=== PATIENT | male | born 1930 | race Caucasian/White ===

== ENCOUNTER 2017-03-02 09:58 | Emergency (ER) | payer MEDICARE ==
[~2017-03-02 09:58] MED LIST: Sodium Chloride Irrig Solution 250 ML BOT ONE
[2017-03-02] MEDS ORDERED: Bacitracin Zinc 1 Packet ONE (10:41)
== END 2017-03-02 10:48 | disposition home or self-care (01) ==
LOC: MADERS 09:58
DX: S61.012A Laceration without foreign body of left thumb without damage to nail, initial encounter (principal); I10 Essential (primary) hypertension; W27.0XXA Contact with workbench tool, initial encounter
CPT/HCPCS: 99282

== ENCOUNTER 2017-03-03 08:51 | Emergency (ER) | payer MEDICARE | END 2017-03-03 09:40 | disposition home or self-care (01) | LOC: MADERS 08:51 | DX: S61.002A Unspecified open wound of left thumb without damage to nail, initial encounter (principal); I10 Essential (primary) hypertension; W26.8XXA Contact with other sharp object(s), not elsewhere classified, initial encounter | CPT/HCPCS: 99282 ==

== ENCOUNTER 2017-03-04 08:20 | Emergency (ER) | payer MEDICARE ==
[2017-03-04] MEDS ORDERED: Triple Antibiotic Ointment 15 GM TUBE ONE (08:31)
[2017-03-04] MEDS ORDERED: Triple Antibiotic Oint 1 GM Packet ONE (08:32)
== END 2017-03-04 08:50 | disposition home or self-care (01) ==
LOC: MADERS 08:20
DX: S61.412D Laceration without foreign body of left hand, subsequent encounter (principal); I10 Essential (primary) hypertension; Z79.891 Long term (current) use of opiate analgesic; Z79.899 Other long term (current) drug therapy; W45.8XXD Other foreign body or object entering through skin, subsequent encounter
CPT/HCPCS: 99282

== ENCOUNTER 2017-03-07 08:28 | Emergency (ER) | payer MEDICARE ==
[2017-03-07] MEDS ORDERED: Bacitracin Zinc 1 Packet ONE (08:52)
[2017-03-07] MEDS ORDERED: Sterile Water Irrigation 250 ML BOT ONE (09:42)
== END 2017-03-07 09:03 | disposition home or self-care (01) ==
LOC: MADERS 08:28
DX: Z48.817 Encounter for surgical aftercare following surgery on the skin and subcutaneous tissue (principal); I10 Essential (primary) hypertension
CPT/HCPCS: 99282

== ENCOUNTER 2018-05-27 09:45 | Emergency (ER) | payer MEDICARE ==
[~2018-05-27 09:45] MED LIST changes: +Iopamidol 370 76% 125 ML VIAL FS ONE; -Sodium Chloride Irrig Solution 250 ML BOT ONE
[2018-05-27 10:16] LABS: #Basophils 0.1 thou/uL (0.0-0.2); #Eosinphils 0.3 thou/uL (0.0-0.7); #Lymphocytes 3.6 thou/uL (1.20-3.40); #Monocytes 0.8 thou/uL (0.11-0.59); #Neutrophils 6.4 thou/uL (1.40-6.50); %Basophils 1.2 % (0.0-1.0); %Eosinophils 2.5 % (0.0-10.0); %Lymphocytes 32.1 % (21.0-51.0); %Monocytes 6.8 % (0.0-10.0); %Neutrophils 57.3 % (42.0-75.0); Hemoglobin 12.5 g/dL (14.0-18.0); Mean Corpuscular HGB CONC 33.9 g/dL (32.0-36.0); Mean Corpuscular Hemoglobin 30.9 pg (27.0-31.0); Mean Platelet Volume 6.4 fL (7.4-10.4); Platelet Count 210 thou/uL (130-400); RBC Distribution Width 11.6 % (11.5-14.5); Red Blood Cell (RBC) Count 4.07 mill/uL (4.70-6.10); White Blood Cell (WBC) Count 11.2 thou/uL (4.8-10.8)
[2018-05-27] MEDS ORDERED: Ondansetron PF 4 MG/2 ML Vial ONE (10:29)
[2018-05-27 10:31] LABS: ALT (SGPT) 15 U/L (8-55); AST (SGOT) 16 U/L (5-34); Albumin 3.2 g/dL (3.4-4.8); Alkaline Phosphatase 111 U/L (40-150); Anion Gap 11 mmol/L (10-20); BUN (Urea Nitrogen) 12 mg/dL (8.4-25.7); Bilirubin, Total 0.8 mg/dL (0.2-1.2); CK (CPK) 60 U/L (30-200); Calc. Creatinine Clearance 0 mL/min (70-130); Calcium 8.3 mg/dL (7.8-10.44); Carbon Dioxide 24 mmol/L (23-31); Chloride 104 mmol/L (98-107); Estimated GFR-MDRD 61; Globulin 2.8 g/dL (2.4-3.5); Glucose 139 mg/dL (83-110); Potassium 4.3 mmol/L (3.5-5.1); Sodium 135 mmol/L (136-145)
--- NOTE | 2018-05-27 11:44 | CT ---
CT ANGIOGRAM CHEST AND ABDOMEN AND PELVIS WITH IV CONTRAST AND 3D MIP RECONSTRUCTIONS: Date: 05/27/18 PROVIDED CLINICAL HISTORY: Abdominal pain and pulsatile abdominal mass. FINDINGS: Vascular calcification, including coronary calcium, is demonstrated. The heart, pericardium, and grea t vessels demonstrate an otherwise unremarkable CT angiographic appearance. The lungs are free of significant opacity. The airway appears patent and of normal caliber. Secretion s are seen at the posterior aspect of the trachea. Mild emphysematous change. There is a 7 .7 cm infrarenal abdominal aortic aneurysm with extensive mural thrombus. There is ill-d efined increased density present within the retroperitoneum surrounding the aneurysm with differentia l density levels compatible with retroperitoneal hemorrhage, indicative of a rupture of the aneurysm. There is extensive atherosclerotic vascular calcification involving the abdominal aorta and its bran ches. Prominent calcification seen at the origin of the left renal artery. No high grade stenosis is seen involving either external iliac artery. Cysts are seen involving both kidneys. The solid abdominal organs are suboptimally evaluated in the a rterial phase of contrast, but demonstrate an unremarkable CT appearance for the phase of contrast on which the study was acquired. There is no bowel dilatation or free air apparent. The osseous structures demonstrate no concerning osteoblastic or osteolytic lesions. IMPRESSION: Ruptured 7.7 cm infrarenal abdominal aortic aneurysm. Findings communicated to the [place] emergency room at 1033 hours on 05/27/18. CODE CR. POS: ASH
[2018-05-27 15:10] LABS: Actual Bicarbonate (HCO3a) 20.8 mEq/L (22-28); Base Excess (BEa) -5.2 mEq/L (-2.0 to +3.0); CO2 Tension 42.1 mmHg (35.0-45.0); Calcium, Ionized 1.02 mmol/L (1.12-1.30); Carboxyhemoglobin (COHb) 0.8 gm% (0.0-3.0); Hemoglobin (Hb) 11.1 g/dL (14.0-18.0); O2 Tension (PaO2) 113.3 mmHg (> 60.0); Potassium - ABG Lab 4.49 mmol/L (3.70-5.30); pH, Arterial 7.31 (7.35-7.45)
[2018-05-27 15:11] LABS: ALV-art Gradient 333.175 (0-20); Puncture Site RRA
== END 2018-05-27 11:06 | disposition short-term general hospital (02) ==
LOC: MADERS 09:45
DX: I71.3 Abdominal aortic aneurysm, ruptured (principal); I10 Essential (primary) hypertension; Z79.899 Other long term (current) drug therapy
CPT/HCPCS: 71275; 80053; 82550; 82805; 83605; 84484; 85025; 86850; 86900; 86901; 86920; 93005; P9016; 36415; 96374; J2405; Q9967